=== PATIENT | female | born 1970 ===

== ENCOUNTER → 2023-09-23 14:15 | Outpatient (REF) | payer BC, SELFPAY | LOC: RAD 14:15 | PROVIDERS: ATTENDING PHYSICIAN Otolaryngology; FAMILY PHYSICIAN Family Medicine | DX: R51.9 Headache, unspecified (principal); J32.2 Chronic ethmoidal sinusitis | CPT/HCPCS: 70486 ==

== ENCOUNTER → 2024-12-28 10:56 | Outpatient (REF) | payer OTHER, SELFPAY | LOC: RAD 10:56 | PROVIDERS: ATTENDING PHYSICIAN Internal Medicine | DX: R10.84 Generalized abdominal pain (principal) | CPT/HCPCS: 74170; Q9967 ==

== ENCOUNTER 2025-05-14 06:25 | Day surgery (SDC) | payer OTHER, SELFPAY | END 2025-05-14 13:26 | disposition home or self-care (01) | LOC: GI 06:25 | PROVIDERS: ATTENDING PHYSICIAN Internal Medicine Gastroenterology; FAMILY PHYSICIAN Internal Medicine | DX: K62.5 Hemorrhage of anus and rectum (principal); K64.9 Unspecified hemorrhoids; K57.30 Diverticulosis of large intestine without perforation or abscess without bleeding; R10.13 Epigastric pain; K44.9 Diaphragmatic hernia without obstruction or gangrene; K25.9 Gastric ulcer, unspecified as acute or chronic, without hemorrhage or perforation; K31.89 Other diseases of stomach and duodenum; K63.5 Polyp of colon | CPT/HCPCS: 45380; 43239; 88305; 88342 ==